=== PATIENT | male | born 1990 | race Asian ===

== ENCOUNTER 2021-06-24 18:03 | Emergency (ER) | payer OTHER, SELFPAY ==
[~2021-06-24] VITALS: Ht 160 cm; Wt 61.2 kg
[2021-06-24 18:05] VITALS: BP_SYST 111
[2021-06-24] MEDS ORDERED: AMOX-426 PO (18:26)
[2021-06-24] MEDS ORDERED: IBUP-1969 PO (18:26)
[2021-06-24] MEDS ORDERED: ALBMDI INH (18:26)
[2021-06-24] MEDS ORDERED: AMOX250S64 PO (18:43)
[2021-06-24] MEDS ORDERED: IBUP100O22 PO (18:43)
== END 2021-06-24 18:39 | disposition home or self-care (01) ==
LOC: SED 18:03
DX: J02.9 Acute pharyngitis, unspecified (principal); Z20.822 Contact with and (suspected) exposure to COVID-19
CPT/HCPCS: 99283; C9803; U0003

== ENCOUNTER 2023-10-19 17:08 | Emergency (ER) | payer MEDICAID, OTHER ==
[~2023-10-19] VITALS: Ht 162.6 cm; Wt 63.5 kg
[~2023-10-19 17:08] MED LIST: ALBMDI INH; AMOX250S64 PO; IBUP100O22 PO
[2023-10-19 17:33] VITALS: BP_SYST 114; PULSE 97; RESP 18; TEMP 97.5; O2SAT 99
[2023-10-19 18:09] LABS: COVID19 ANTIGEN SOFIA FIA NEGATIVE (NEGATIVE)
[2023-10-19 18:17] LABS: INFLUENZA TYPE A Negative (NEGATIVE); INFLUENZA TYPE B NEGATIVE (NEGATIVE)
[2023-10-19] MEDS ORDERED: AZIT500T10 PO (18:29)
[2023-10-19 18:45] VITALS: BP_SYST 114; PULSE 97; RESP 18; TEMP 97.5; O2SAT 99
[2023-10-19] MEDS ORDERED: AZIT100S17 PO (18:45)
== END 2023-10-19 18:45 | disposition home or self-care (01) ==
LOC: SED 17:08
DX: J20.9 Acute bronchitis, unspecified (principal); R05.9 Cough, unspecified; R09.89 Other specified symptoms and signs involving the circulatory and respiratory systems; J02.9 Acute pharyngitis, unspecified; Z79.899 Other long term (current) drug therapy; Z20.822 Contact with and (suspected) exposure to COVID-19
CPT/HCPCS: 36415; 99283